=== PATIENT | male | born 1950 | race Two or more races ===

== ENCOUNTER → 2017-12-27 | Outpatient (CLI) | payer MEDICARE, OTHER ==
[2017-12-27 11:20] LABS: BASOPHILS % (AUTO) 0.6 % (0.0-2.0); EOSINOPHILS % (AUTO) 5.2 % (1.0-6.0); HEMATOCRIT 42.4 % (41-53); HEMOGLOBIN 14.4 g/dL (13.5-17.5); LYMPHOCYTES # (AUTO) 1.8 K/uL (1.0-4.8); LYMPHOCYTES % (AUTO) 31.1 % (22.0-44.0); MEAN CORPUSCULAR HEMOGLOBIN 29.8 pg (26.0-34.0); MEAN CORPUSCULAR HGB CONC 33.9 G/dL (31.0-37.0); MEAN CORPUSCULAR VOLUME 88 fL (80-100); MONOCYTES # (AUTO) 0.6 K/uL (0.1-1.0); MONOCYTES % (AUTO) 9.8 % (2.0-9.0); NEUTROPHILS # (AUTO) 3.2 K/uL (1.8-7.7); NEUTROPHILS % (AUTO) 53.3 % (40.0-70.0); PLATELET COUNT (AUTO) 214 K/uL (150-450); RED BLOOD CELL COUNT(AUTO) 4.81 MIL/uL (4.50-5.90); RED CELL DISTRIBUTION WIDTH 13.6 % (11.5-14.5)
== END | disposition home or self-care (01) ==
LOC: LABPV 10:49
PROVIDERS: ATTEND Internal Medicine Pulmonary Disease
DX: J45.909 Unspecified asthma, uncomplicated (principal)

== ENCOUNTER 2019-06-27 18:01 | Emergency (ER) | payer OTHER ==
[~2019-06-27] VITALS: Ht 162.6 cm; Wt 65.9 kg
[2019-06-27] MEDS ORDERED: FLUT12AE7 IH (18:52)
[2019-06-27] MEDS ORDERED: MONT10TA21 PO (18:52)
[2019-06-27] MEDS ORDERED: LORA10TA7 PO (18:52)
[2019-06-27] MEDS ORDERED: ASPI-556 PO (18:52)
[2019-06-27] MEDS ORDERED: ATOR10TA84 PO (18:52)
[2019-06-27] MEDS ORDERED: LISI-662 PO (18:52)
[2019-06-27] MEDS ORDERED: METF-960 PO (18:52)
[2019-06-27 18:56] LABS: GLUCOSE,POINT OF CARE 136 MG/DL (70-110)
[2019-06-27] MEDS ORDERED: ADV250 IH (19:08)
[2019-06-27] MEDS ORDERED: IBUPROFEN 400 MG TABLET PO ONE (19:15)
[2019-06-27 21:12] VITALS: BP 124/77
== END 2019-06-27 21:14 | disposition home or self-care (01) ==
LOC: EMS 18:01
DX: S90.31XA Contusion of right foot, initial encounter (principal); S80.211A Abrasion, right knee, initial encounter; J45.909 Unspecified asthma, uncomplicated; E11.9 Type 2 diabetes mellitus without complications; E78.00 Pure hypercholesterolemia, unspecified; I10 Essential (primary) hypertension; Z79.899 Other long term (current) drug therapy; Z79.84 Long term (current) use of oral hypoglycemic drugs; Z79.82 Long term (current) use of aspirin; V03.90XA Pedestrian on foot injured in collision with car, pick-up truck or van, unspecified whether traffic or nontraffic accident, initial encounter; Y93.89 Activity, other specified; Y92.488 Other paved roadways as the place of occurrence of the external cause; Y99.8 Other external cause status
CPT/HCPCS: 29515

== ENCOUNTER → 2024-08-30 | Emergency (ER) | payer OTHER ==
[~2024-08-30] MED LIST: ASPI-556 PO; ATOR10TA PO; FLUT1BLS6 IH; LISI-894 PO; LORA10TA7 PO; METF-1211 PO; MONT-35 PO
== END | disposition left against medical advice (07) ==
LOC: EMS 09:20
DX: R10.9 Unspecified abdominal pain (principal); Z53.21 Procedure and treatment not carried out due to patient leaving prior to being seen by health care provider